=== PATIENT | female | born 1980 | race Caucasian/White ===

== ENCOUNTER 2016-12-04 05:54 | Inpatient (IN) | payer OTHER ==
[~2016-12-04] VITALS: Ht 154.9 cm; Wt 81.6 kg
[2016-12-04 06:30] VITALS: BP 128/70
--- NOTE | 2016-12-04 07:48 | PN- OBGYN ---
Surgical Brief Attending Note Brief Attending Note: 36 YEAR OLD FEMALE. @ 39 WEEKS PRESENTS FOR PRIMARY LTCS FOR BREECH PRESENTATION. 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 RECENT HGB A1C 5.7, FALSE POSITIVE RPR. PT AND COUNSELED ON R/B/A OF C/S INCLUDING RISK OF BLEEDING, INFECTION, INJURY TO OTHER ORGANS, NEED FOR ADDITIONAL PROCEDURES SHOULD COMPLICATION OCCUR , INJURY TO FETUS, TTN. QUESTIONS ANSWERED AND DESIRES TO PROCEED.
--- NOTE | 2016-12-04 09:07 | Operative Report ---
Operative/Inv Procedure Report Surgery Date: 12/04/16 Name of Procedure: Primary low transverse Pre-Operative Diagnosis: Breech presentation, term , A1 gestational diabetic Post-Operative Diagnosis: Same Estimated Blood Loss: 700 mL Surgeon/Alteration Manager: LIYA ESPINOZA DO, M.D. Anesthesia: block, spinal with Duramorph IV Fluids: 1800 mL crystalloid Urine Output: 100 mL clear yellow urine at the end of the procedure Drains: Chirinos catheter Specimens: None Complications: None Condition: Good Operative Indication: This patient is a 36-year-old 2 para 0010 who presents at 39 weeks for primary low transverse section. The patient's fetus is in breech presentation confirmed this morning and she is a lat-[id number]-[id number] diabetic. Her history is significant for advanced maternal age, she had an negative maternity 21 screen and the only finding on her anatomy scan was cord plexus cysts, no other findings were noted. She has had weekly antepartum testing since 35 weeks, and a false positive RPR. Definitive testing was negative Operative/Procedure Note Note: The patient was taken to the operating room where anesthesia was obtained without difficulty. She was placed in the dorsal supine position with left lateral tilt. She then prepared and draped in usual sterile fashion. A Pfannenstiel skin incision was made with the scalpel and carried down to the fascia with the Bovie. The fascia was incised and the fascial incision was then extended bilaterally with sharp dissection. The superior aspect of the fascial incision was tented up with Woodson clamps and rectus muscles dissected off with sharp dissection. Attention was then turned to the inferior portion of fascial incision which was similarly tented up with Lee clamps and rectus muscles dissected off with sharp dissection as well as with the Bovie. Rectus muscles were in midline. Peritoneum was identified and entered bluntly. Peritoneal incision was then extended superiorly inferiorly with good visualization the bladder. Bladder blade was inserted. Vesicouterine peritoneum was identified and entered sharply with Metzenbaum scissors. Incision was then extended bilaterally with sharp dissection and a bladder flap was created sharply. Bladder blade was reinserted. The lower uterine segment was then incised in transverse fashion with the scalpel. Uterine uterine incision was then extended with blunt dissection. The fetus was noted to be in jacqui breech presentation. The fetus was delivered up to level of the greater trochanter, the legs were delivered atraumatically. The fetus was then delivered up to the level of bilateral scapula with a moist towel. With gentle rotation, the arms were delivered without difficulty. The head was delivered in a well flexed position. The was then dried and stimulated the infant's nose and mouth were bulb suctioned. The cord was clamped and cut and the was handed to the waiting pediatric team. The placenta was delivered manually. The uterus was then exteriorized and cleared of all clots and debris. Bladder blade was reinserted and 10 units of Pitocin was administered intrauterine. Uterine incision was re-approximately 0 Vicryl in a running locking fashion. A secured second imbricating suture was placed with 0 Vicryl. Good hemostasis was noted. Posteriorly the uterus was irrigated and she was also noted to have normal-appearing bilateral fallopian tubes and ovaries. Uterine incision was reevaluated and noted to be hemostatic. The uterus was then replaced back into the abdomen and gutters were cleared of all clots and debris. Again the uterine incision was reevaluated and noted to be hemostatic. Peritoneum was reapproximated 2-0 Polysorb. Rectus muscles were reapproximated with a single [id number] suture of 2-0 Polysorb inferiorly. Rectus muscles were hemostatic. Fascia was repassed with 0 Vicryl in a running fashion. Subcutaneous cutaneous tissues were irrigated and noted to be hemostatic. Caitlin's layer was reapproximated 3-0 Polysorb. Skin was closed with 4-0 Biosyn on a Yon needle. All sponge lap needle counts were correct 2 the patient was taken to the recovery room in stable condition. Findings: 6 lbs. 4 oz. female delivered at 08 11 on 12/04/2016. scores of 9, 9, 9 Discharge Disposition: CBC
[2016-12-05 08:46] LABS: ABSOLUTE BASOPHIL COUNT 0 /CUMM (0.0-0.2); ABSOLUTE EOSINOPHIL COUNT 0.1 /CUMM (0.0-0.7); ABSOLUTE GRANULOCYTE CT 7.8 /CUMM (1.4-6.5); ABSOLUTE LYMPH COUNT 2.7 /CUMM (1.2-3.4); ABSOLUTE MONOCYTE COUNT 0.6 /CUMM (0.10-0.60); BASOPHIL % 0.3 % (0.0-2.0); EOSINOPHIL % 1.1 % (0-5); GRANULOCYTE % 69.4 % (42.2-75.2); HEMATOCRIT 31.3 % (37-47); MEAN CORPUSCULAR HGB 25.1 PG (27.0-31.0); MEAN CORPUSCULAR HGB CONC 32.7 G/DL (33.0-37.0); MEAN CORPUSCULAR VOLUME 76.7 FL (81.0-99.0); MEAN PLATELET VOLUME 7.5 FL (7.4-10.4); PLATELET COUNT 236 /CUMM (130-400); RBC DISTRIBUTION WIDTH 19.2 % (11.5-14.5); RED BLOOD CELL CT 4.09 /CUMM (4.20-5.40); WHITE BLOOD CELL COUNT 11.3 /CUMM (4.8-10.8)
--- NOTE | 2016-12-05 12:39 | PN- Post Delivery/GYN ---
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 iNCISION IS CLEAN DRY AND INTACT WITHOUT ERYTHEMA OR INDURATION OR DRAINAGE Neurological Normal Gait, Normal Speech Extremities No Tenderness/Swelling Reproductive (FEMALE) Normal female genitalia, AVERAGE LOCHIA Current Medications: Current Medications Sig/Erlin Start time Last Medication Dose Route Stop Time Status Admin Acetaminophen 650 MG Q4P PRN 12/04 0845 AC PO Bisacodyl 10 MG DAILY NEEDED PRN 12/04 0845 AC LA Diphenhydramine HCl 25 MG Q6P PRN 12/04 0845 AC IV Docusate Sodium 100 MG BID 12/05 1000 AC 12/05 PO 0805 Hydroxyzine HCl 50 MG AT BEDTIME NEED.. 12/05 0000 AC PO Ibuprofen 600 MG Q6P PRN 12/04 0845 AC PO Ibuprofen 800 MG Q6P PRN 12/04 0845 AC PO Ketorolac 30 MG Q6P PRN 12/04 0845 DC 12/05 Tromethamine IV 12/05 0844 0805 Lactated Ringer's 1,000 ML Q8H 12/04 1715 DC 12/05 IV 0026 Magnesium Hydroxide 30 ML DAILY NEEDED PRN 12/04 0845 AC PO Metoclopramide HCl 10 MG Q6P PRN 12/04 0945 AC IV Naloxone HCl 0.2 MG .Q5MIN PRN 12/04 0945 AC IV Oxycodone/ 1 TAB Q4P PRN 12/04 0845 AC 12/05 Acetaminophen PO 1112 Oxycodone/ 2 TAB Q4P PRN 12/04 0845 AC Acetaminophen PO Oxytocin 20 UNITS Q8H 12/04 0845 DC 12/04 Lactated Ringer's 1,000 ML IV 12/04 1644 0859 Simethicone 80 MG Q6P PRN 12/05 1117 AC PO Simethicone 80 MG Q6 12/05 0600 DC PO Last 24 Hrs of Labs/Homer: Laboratory Tests 12/05/16 0830: CBC w Diff NO MAN DIFF REQ, RBC 4.09 L, MCV 76.7 L, MCH 25.1 L, RDW 19.2 H, MPV 7.5, Gran % 69.4, Lymphocytes % 23.5, Monocytes % 5.7, Eosinophils % 1.1, Basophils % 0.3, Absolute Granulocytes 7.8 H, Absolute Lymphocytes 2.7, Absolute Monocytes 0.6, Absolute Eosinophils 0.1, Absolute Basophils 0, PUBS MCHC 32.7 L Assessment/Plan Assessment/Plan Stable postop day post delivery day #1 Patient is advanced to regular diet. Her pain is controlled with by mouth pain medications. Patient was advised for full ambulation in room and hallway. Problem List: 1. 2. Breech presentation at 3. delivery due to maternal disorder Attending MD Review Statement Attending Statement Attending MD Statement: examined this patient, discussed with family, reviewed EMR data (avail), discussed with nursing Attending Assessment/Plan: Faith Syed MD
--- NOTE | 2016-12-06 15:19 | PN- OBGYN ---
Surgical Brief Attending Note Brief Attending Note: Doing well no complaints. Has some difficulty with nursing yesterday but feels better about it today. Minimal lochia. Tolerating pain, by mouth. Ambulating voiding without difficulty. Vital signs stable afebrile Fundus firm at U -2 Incision clean dry and intact Extremities with trace pedal edema bilaterally, no calf tenderness Laboratory Tests 12/05/16 0830: CBC w Diff NO MAN DIFF REQ, RBC 4.09 L, MCV 76.7 L, MCH 25.1 L, RDW 19.2 H, MPV 7.5, Gran % 69.4, Lymphocytes % 23.5, Monocytes % 5.7, Eosinophils % 1.1, Basophils % 0.3, Absolute Granulocytes 7.8 H, Absolute Lymphocytes 2.7, Absolute Monocytes 0.6, Absolute Eosinophils 0.1, Absolute Basophils 0, PUBS MCHC 32.7 L Microbiology 12/04 0848 URINE ROUT: Urine Culture - CAN Cancelled: DUPLICATE 12/04 0800 URINE ROUT: Urine Culture - COMP Assessment and plan. Postop day 2. Status post primary low transverse section for breech presentation. Doing well. Routine postop care
[2016-12-07] MEDS ORDERED: PERCOCET 5-3251 EACH PO (09:23)
[2016-12-07] MEDS ORDERED: IBUPROFEN800 M1 PO (09:23)
--- NOTE | 2016-12-07 09:53 | PN- OBGYN ---
Surgical Brief Attending Note Brief Attending Note: POD#3 pt is sitting in chair, no complaints, tolerate diet, void without difficulties. ambulating well PE: VSS Cv RRR Lungs CTA B/L Abdomen: soft, nontender. uterus firm, fundus below umbilicus. incision D/C/I, lochia mild. Ext: DCT (-) A/P: 36yo, s/p PLTCS, POD #3 1. encourage ambulation, encourage 2. pain management as needed 3. will d/c home, f/u in office 2 wks and 6 wks 4.RT PP care
== END 2016-12-07 11:47 | DRG 766 ==
LOC: GNO 05:54
PROVIDERS: Obstetrics & Gynecology; ADMIT Obstetrics & Gynecology
PROC: 10D00Z1 Extraction of Products of Conception, Low, Open Approach (ICD-10-PCS; principal; 2016-12-04)
DX: O32.1XX0 Maternal care for breech presentation, not applicable or unspecified (principal); O35.0XX0 Maternal care for (suspected) central nervous system malformation in fetus, not applicable or unspecified; O24.429 Gestational diabetes mellitus in childbirth, unspecified control; Z37.0 Single live birth; O09.523 Supervision of elderly multigravida, third trimester; Z3A.39 39 weeks gestation of pregnancy; Z87.891 Personal history of nicotine dependence
CPT/HCPCS: GNOS; 36415; 87086; J0690; J1885; J7120